=== PATIENT | female | born 1960 | race Caucasian/White ===

== ENCOUNTER 2017-03-23 10:42 | Emergency (ER) | payer OTHER ==
[2017-03-23 10:52] VITALS: BP 101/62; PULSE 90; TEMP 98.9; BMI 24.0
[2017-03-23] MEDS ORDERED: FAMOTIDINE 20 MG/50 ML IVPB 50 ML IVPB ONE ×2 (11:39→11:56)
[2017-03-23] MEDS ORDERED: ONDANSETRON 4 MG/2 ML VIAL IVPUSH ONE (11:39)
[2017-03-23] MEDS ORDERED: SODIUM CHLORIDE 1,000 ML IV SCH (11:45)
[2017-03-23] MEDS ORDERED: ONDANSETRON 4 MG/2 ML VIAL ONE (11:56)
[2017-03-23 12:06] LABS: MCH 20.4 pg (25.7-33.7); MEAN CELL VOLUME 63.9 fl (80-96); MEAN PLT VOLUME 8.5 fl (7.5-11.1); PLATELET COUNT 241 K/MM3 (134-434); RDW 14.5 % (11.6-15.6); WHITE BLOOD COUNT 5.5 K/mm3 (4.0-10.8)
--- NOTE | 2017-03-23 12:08 | PDOC ---
History of Present Illness - General Chief Complaint: Pain Stated Complaint: ABDOMINAL PAIN Time Seen by Provider: 03/23/17 10:44 History Source: Patient Exam Limitations: No Limitations - History of Present Illness Initial Comments: 03/23/17 11:46 This is a 56-year-old female with a past medical history of ulcers, gastritis/ antritis who presents to the ER with a complaint of epigastric and upper abdominal pain. Symptoms began 6 days ago. She started Protonix which was minimally helpful. She was seen by her res habilitation assistant 3 days ago who started Augmentin, reglan and simethicone. she is sy/p barium swallow yesterday. Pt states that her symptoms have improved. she now reports diffuse burning abdominal pain she has had decreased po intake due to fear of abdominal pain. Diet modified such that she is eating mostly rice and bread currently pain is 8/10, no radiation She denies fevers or chills She denies vomiting or diarrhea she denies ill contacts she denies recent trave. She denies bloody stool or black tarry stool PMH: gatritis PSH: denies Meds: Augmentin, Reglan (she stopped this becaue it causes hand cramping), ALL NKDA social: denies alcohol, drug, cigarette use GENERAL/CONSTITUTIONAL: No: fever, chills, weakness, loss of appetite. HEAD, EYES, EARS, NOSE AND THROAT: No: change in vision, ear pain, discharge, sore throat, throat swelling. CARDIOVASCULAR: No: chest pain, lightheadedness, palpitations, syncope RESPIRATORY: No: cough, shortness of breath, wheezing, hemoptysis, stridor. GASTROINTESTINAL: Yes: abdominal pain No: nausea, vomiting, diarrhea rectal bleeding, melena GENITOURINARY: No: dysuria, hematuria, frequency, urgency, flank pain. MUSCULOSKELETAL: No: back pain, neck pain, joint pain, muscle swelling or pain SKIN: No: lesions, pallor, rash or easy bruising. NEUROLOGIC: No: headache, vertigo, paresthesias, weakness ENDOCRINE: No: unexplained weight gain or loss HEMATOLOGIC/LYMPHATIC: No: anemia, easy bleeding, swelling nodes. GENERAL: The patient is in no acute distress. HEAD: Normal with no signs of trauma. EYES: PERRLA, EOMI, sclera anicteric, conjunctiva clear. ENT: Ears normal, nares patent, oropharynx clear without exudates. Moist mucous membranes. NECK: Normal range of motion, supple without lymphadenopathy, JVD, or masses. LUNGS: Breath sounds equal, clear to auscultation bilaterally. No wheezes, and no crackles. HEART:Regular rate and rhythm, normal S1 and S2 without murmur, rub or gallop. ABDOMEN: Soft, epigastric tenderness to palpation, no involuntary guarding, no rebound EXTREMITIES: Normal range of motion, no edema. No clubbing or cyanosis. No erythema, or tenderness. NEUROLOGICAL: Cranial nerves II through XII grossly intact. Normal speech. No focal neurological deficits. MUSCULOSKELETAL: Back non-tender to palpation, no CVA tenderness SKIN: Warm, Dry, normal turgor, no rashes or lesions noted. Past History - Past Medical History Allergies/Adverse Reactions: Allergies Allergy/AdvReac Type Severity Reaction Status Date / Time No Known Allergies Allergy Verified 03/23/17 10:44 Home Medications: Ambulatory Orders Ranitidine HCl [Zantac] 300 mg PO DAILY 12/16/15 Hydroxyzine Pamoate [Vistaril -] 25 - 50 mg PO TID PRN #15 capsule 04/25/16 Oxycodone HCl/Acetaminophen [Percocet 5-325 mg Tablet] 1 - 2 tab PO Q4H PRN #12 tablet MDD 6 04/25/16 Aspirin [ASA -] PRN 10/24/16 Oxycodone HCl/Acetaminophen [Percocet 5-325 mg Tablet] 1 tab PO Q6H PRN #14 tablet MDD 4 10/24/16 Pantoprazole Sodium [Protonix -] 40 mg PO DAILY #30 tablet.ec 10/24/16 Amoxicillin/Potassium Clav [Augmentin 875-125 Tablet] 1 each PO BID 03/23/17 Metoclopramide HCl [Reglan] 0 mg PO BID 03/23/17 Simethicone [Gas Relief 80] 80 mg PO ASDIR 03/23/17 Sucralfate Oral Suspension [Carafate *Oral Susp*] 1 gm PO BID PRN #100 ml Anemia: Yes GI Disorders: Yes (STOMACH ULCERS) - Psycho/Social/Smoking Cessation Hx Anxiety: No Suicidal Ideation: No Smoking Status: No Smoking History: Never smoked Have you smoked in the past 12 months: No Number of Cigarettes Smoked Daily: 0 Information on smoking cessation initiated: No Hx Alcohol Use: No Drug/Substance Use Hx: No Substance Use Type: None *Physical Exam - Vital Signs Last Vital Signs Temp Pulse Resp BP Pulse Ox 98.9 F 90 18 101/62 99 03/23/17 10:43 03/23/17 10:43 03/23/17 10:43 03/23/17 10:43 03/23/17 10:43 ED Treatment Course - LABORATORY CBC & Chemistry Diagram: 03/23/17 11:39 03/23/17 12:05 Medical Decision Making - Medical Decision Making 03/23/17 12:08 Will do labs will give IVF, zofran, PPI Will re assess 03/23/17 12:25 Laboratory Tests 10/24/16 10/24/16 03/23/17 14:55 14:55 11:39 WBC 5.5 5.5 Hgb 10.6 L 11.1 Hct 34.5 34.7 Plt Count 250 241 Sodium Potassium Chloride Carbon Dioxide Anion Gap BUN 13 Creatinine 0.6 Random Glucose Total Amylase Lipase 03/23/17 12:05 WBC Hgb Hct Plt Count Sodium 139 Potassium 4.0 Chloride 105 Carbon Dioxide 28 Anion Gap 6 L BUN 12 Creatinine 0.7 Random Glucose 92 Total Amylase 56 Lipase 36 03/23/17 12:45 Pt states she feels a bit better She still has pain Will give Carafate will do x ray abdomen 03/23/17 13:55 Pt does not want a CT scan X ray does not appear to show obstruction Barium from yesterday's test Pt states that these symptoms have been present intermittently for the past 4 years She believes it is related to stress Will discharge to home Follow up with PMD and GI *DC/Admit/Observation/Transfer Diagnosis at time of Disposition: Gastritis Qualifiers: Gastritis type: unspecified gastritis Chronicity: acute Gastritis bleeding: without bleeding Qualified Code(s): K29.00 - Acute gastritis without bleeding - Discharge Dispostion Disposition: HOME Condition at time of disposition: Stable Admit: No - Prescriptions Prescriptions: Sucralfate Oral Suspension [Carafate *Oral Susp*] 1 gm PO BID PRN #100 ml PRN Reason: gastritis - Referrals Referrals: Chris Parikh MD [Staff Physician] - - Patient Instructions Printed Discharge Instructions: DI for Gastritis Additional Instructions: Thank you for coming in to the ER today Please continue taking medications as prescribed Please follow up with your primary care physician and Dr Parikh Please come in to the ER for any other concerns or complaints
[2017-03-23 12:21] LABS: ALBUMIN 4.1 g/dl (3.5-5.0); ALK PHOS 62 U/L (32-92); AMYLASE 56 U/L (25-125); ANION GAP 6 (8-16); BILIRUBIN,TOTAL 0.7 mg/dl (0.2-1.0); CO2 28 mmol/L (22-28); CREATININE 0.7 mg/dl (0.6-1.3); GLUCOSE,RANDOM 92 mg/dl (74-106); SGOT/AST 16 U/L (10-42); SGPT/ALT 14 U/L (10-40); TOT PROT 6.7 g/dl (6.4-8.3)
[2017-03-23] MEDS ORDERED: SUCRALFATE 1 GM/10 ML UNIT DOSE CUPS PO ONE (12:40)
[2017-03-23 16:50] LABS: PLATELET ESTIMATE ADEQUATE (NORMAL)
[2017-03-23 16:51] LABS: HYPOCHROMIA 2+; MICROCYTOSIS 1+; PLATELET COMMENT2 NO CLOTTING DETECTED
== END 2017-03-23 14:24 | disposition home or self-care (01) ==
LOC: FER 10:42
PROC: 3E033GC Introduction of Other Therapeutic Substance into Peripheral Vein, Percutaneous Approach (ICD-10-PCS; principal; 2017-03-23)
PROC: 3E0337Z Introduction of Electrolytic and Water Balance Substance into Peripheral Vein, Percutaneous Approach (ICD-10-PCS; 2017-03-23)
DX: K29.00 Acute gastritis without bleeding (principal); D64.9 Anemia, unspecified
CPT/HCPCS: 36415; 74020-TC; 80053; 82150; 83690; 85025; 99282-25

== ENCOUNTER 2025-07-03 18:10 | Emergency (ER) | payer OTHER ==
[2025-07-03 18:17] VITALS: BP 135/72; PULSE 71; RESP 18; TEMP 98.4; BMI 24.4
[2025-07-03 19:47] LABS: INR 1.05 (0.83-1.09); PROTHROMBIN TIME (PATIENT) 11.6 SEC (9.7-13.0)
[2025-07-03 19:48] LABS: ABSOLUTE IMMATURE GRANULOCYTES 0.01 x10^3/uL (0.0-0.031); BASOPHILS # 0.02 x10^3/uL (0.01-0.08); EOSINOPHIL % 0.8 % (0.7-5.8); EOSINOPHILS # 0.05 x10^3/uL (0.04-0.36); MCHC 31.1 g/dl (32.2-35.5); MEAN CELL VOLUME 64.9 fl (79.4-94.8); MEAN PLT VOLUME 11.3 fl (9.4-12.3); MONOCYTE # 0.40 x10^3/uL (0.24-0.86); MONOCYTE % 6.5 % (4.7-12.5); RDW 16.1 % (12.4-16.4)
[2025-07-03 19:49] LABS: ACTIVATED PTT 30.8 SECONDS (25.2-36.5)
[2025-07-03 19:53] LABS: EPITHELIAL CELLS 0-5 /hpf
[2025-07-03 19:54] LABS: ALK PHOS 48.0 U/L (45-117); CO2 29.0 mmol/L (21-32); CREATININE 0.6 mg/dl (0.6-1.3); GLUCOSE,RANDOM 96.0 mg/dl (74-106); SGOT/AST 18.0 U/L (15-37); SGPT/ALT 14.0 U/L (7-52); TOT PROT 6.6 g/dl (6.4-8.2)
[2025-07-03] MEDS ORDERED: ACETAMINOPHEN INJECTION 100 ML ONE (20:53)
[2025-07-03] MEDS: SODIUM CHLORIDE 1,000 ML IV ONE (20:53)
[2025-07-03] MEDS: ACETAMINOPHEN 1000 MG/100 ML BAG IVPB ONE (20:53)
[2025-07-03 21:29] LABS: HIV INTERPRETATION NEGATIVE (NEGATIVE)
[2025-07-03 21:30] LABS: HCV DIAGNOSTIC IN-HOUSE W/RFLX NON-REACTIVE (NONREACTIVE)
== END 2025-07-03 23:27 | disposition home or self-care (01) ==
LOC: FER 18:10
PROC: 3E033NZ Introduction of Analgesics, Hypnotics, Sedatives into Peripheral Vein, Percutaneous Approach (ICD-10-PCS; principal; 2025-07-03)
PROC: 3E0337Z Introduction of Electrolytic and Water Balance Substance into Peripheral Vein, Percutaneous Approach (ICD-10-PCS; 2025-07-03)
DX: R10.11 Right upper quadrant pain (principal); M25.511 Pain in right shoulder
CPT/HCPCS: 36415; 73030-TC-RT-FY; 74177-TC; 76705-TC; 80053; 81003; 81015; 83690; 84484; 85025; 85610; 85730; 86803; 87389; 93005; Q9967